=== PATIENT | male | born 1960 | race Caucasian/White ===

== ENCOUNTER 2021-06-15 10:19 | Emergency (ER) | payer OTHER ==
[2021-06-15 12:11] LABS: CORONAVIRUS 2019 SARS-COV-2 NEGATIVE (NEGATIVE); INFLUENZA A NAA NEGATIVE (NEGATIVE)
[2021-06-15 14:53] LABS: BASOPHIL 0.4 % (0-2); EOSINOPHIL 0 % (0-5); HCT 46.7 % (42.0-52.0); HGB 16.5 g/dl (13.2-18.0); MCH 28.8 pg (25.0-31.0); MCHC 35.3 g/dL (32.0-36.0); MCV 81.5 fL (78.0-100.0); MONOCYTE 3.2 % (0-12); MPV 9.2 fL (6.0-9.5); NEUTROPHIL 85.9 % (41-80); NRBC 0; PLT 258 K/uL (150-400); RBC 5.73 M/uL (4.70-6.00); RDW 12.9 % (11.5-14.0); WBC 10.3 K/uL (4.0-10.5)
[2021-06-15 15:18] LABS: ALBUMIN 4.2 g/dL (3.4-5.0); BILIRUBIN - TOTAL 0.5 mg/dL (0.2-1.0); BUN/CREAT RATIO (CALC) 17.6 RATIO; CREATININE 0.74 mg/dL (0.67-1.17); GLOBULIN (CALCULATION) 3.3 g/dL; POTASSIUM 4.1 mmol/L (3.5-5.1); TOTAL PROTEIN 7.5 g/dL (6.4-8.2)
[2021-06-15 17:32] LABS: BILIRUBIN NEGATIVE (NEGATIVE); BLOOD NEGATIVE Ery/uL (NEGATIVE); CLARITY CLEAR (CLEAR); COLOR YELLOW (YELLOW); GLUCOSE (U) NORMAL (NORMAL); LEUKOCYTES NEGATIVE Leu/uL (NEGATIVE); NITRITE NEGATIVE (NEGATIVE); PROTEIN NEGATIVE (NEGATIVE); UROBILINOGEN 0.2 mg/dL (0.2-1.0); pH 5.5 (5.0-9.0)
[2021-06-15 17:41] LABS: SQUAMOUS EPITHELIAL CELLS RARE
== END 2021-06-15 18:31 | disposition home or self-care (01) ==
LOC: FER 10:19
PROVIDERS: Emergency Medicine; Physician Assistant
DX: N20.1 Calculus of ureter (principal); D3A.098 Benign carcinoid tumors of other sites; E11.9 Type 2 diabetes mellitus without complications; F17.290 Nicotine dependence, other tobacco product, uncomplicated; E78.5 Hyperlipidemia, unspecified; Z20.822 Contact with and (suspected) exposure to COVID-19; Z79.84 Long term (current) use of oral hypoglycemic drugs; Z79.82 Long term (current) use of aspirin; Z79.899 Other long term (current) drug therapy
CPT/HCPCS: 36415; 80053; 81001; 85025; J2270; J2405; J7030; Q9967; U0002